=== PATIENT | female | born 1985 | race Caucasian/White ===

== ENCOUNTER → 2022-09-20 11:57 | Outpatient (CLI) | payer OTHER, SELFPAY ==
--- NOTE | ~2022-09-20 | US_ITS ---
EXAMINATION: US pelvic complete DATE: 09/20/2022 12:30 INDICATION: Uterine hypertrophy Comparison:12/13/2015 TECHNIQUE: Multiple transabdominal and endovaginal sonographic images of the pelvis performed. FINDINGS: The uterus measures 14.9 x 8.4 x 9.8 cm. There are multiple uterine fibroids, largest measu ring 6.7 x 5.5 x 4.8 cm. The endometrial complex measures 7 mm. The ovaries are not visualized. There is no free fluid in the pelvis. There are no abnormal masses seen on either side. IMPRESSION: 1. Enlarged uterus containing multiple fibroids, largest measuring up to 6.7 cm. Reviewed, dictated and finalized at location L. IMPRESSION: 1. Enlarged uterus containing multiple fibroids, largest measuring up to 6.7 cm .
== END ==
PROVIDERS: PCP Advanced Practice Midwife; Visit Provider Advanced Practice Midwife
DX: N85.2 Hypertrophy of uterus (principal); D25.9 Leiomyoma of uterus, unspecified
CPT/HCPCS: 76856

== ENCOUNTER 2023-05-30 09:52 | Outpatient (CLI) | payer OTHER, SELFPAY ==
[2023-05-30 10:22] LABS: Hemoglobin 13.2 g/dL (12.0-15.0)
== END 2023-05-30 09:53 | disposition home or self-care (01) ==
LOC: ANHSURGERY 09:57
PROVIDERS: Visit Provider Obstetrics & Gynecology Gynecology
DX: D25.9 Leiomyoma of uterus, unspecified (principal); Z01.818 Encounter for other preprocedural examination
CPT/HCPCS: 36415; 85014; 85018; 86850; 86900; 86901

== ENCOUNTER 2023-06-03 10:15 | Inpatient (IN) | payer OTHER, SELFPAY ==
[2023-05-23 10:43] VITALS: BMI 25.7
--- NOTE | 2023-05-23 10:49 | PC.NURSE ---
Report to the Outpatient Waiting Room, entrance under the green pavilion located off [facility], at time 6:00 on date 06/03/23. Planned Procedure Time: 7:30. Time changes happen often and if your time is changed the preop area will call you the afternoon before. - You and your visitor will be asked to self-screen and do not enter if you have any COVID symptoms. - A mask is optional within the hospital at this time. Patients may have clear liquids (water, carbonated beverages, clear teas, apple juice) until 3 hours prior to surgery (4:30) with a maximum of 20 ounces. - No food from midnight until time of surgery Take the following medications with a SIP of water the morning of surgery: NONE DO NOT STOP ANY OF YOUR OTHER PRESCRIPTION MEDICATIONS PRIOR TO SURGERY ?EXCEPT THE FOLLOWING Medications to discontinue per physician: VITAMINS/SUPPLEMENTS Date to take last dose: 05/30/23 Please no make-up, nail syriac, hairspray, perfume, deodorant, or body powder the day of surgery. No jewelry (including any body piercings) or valuables the day of surgery, leave them at home. Please take a shower or bath the night before, or the morning of, surgery with an antibacterial soap. Wear comfortable, loose fitting clothing. - Jewelry must be removed prior to entering the operating room. Rings and piercings that are not removed may be cut off. - The hospital will not accept responsibility for valuables. - Please leave all valuables, including medications, at home the day of surgery. If you are going home after surgery, a licensed otr driver must drive you home. - NO public transportation without another adult if you receive anesthesia. - We recommend that an adult stay with you for 24 hours following discharge. - We also recommend that you do not drive, make important decision, drink alcoholic beverages, or take any drugs that were not prescribed by your health care provider for at least 24 hours after your discharge time. Follow any additional instructions given to you from your surgeon. If you or anyone in your household have experienced Covid symptoms in the past week, please notify your surgeon or the nurse liaison at the phone number below for possible testing. Telephone instructions given to PT - MICHELLE JOHNSON and asked if any additional questions and then verbalized understanding. Patient advised to call surgeon office or pre surgery nurse liaison [phone] if any additional questions.
[2023-06-03] VITALS (12 sets, daily range): BP systolic 101–137; BP diastolic 56–113; PULSE 66–80; RESP 12–20; TEMP 36.6–37.2; O2SAT 93–100; BMI 24.5
[2023-06-03] MEDS: ACETAMINOPHEN 500 MG TABLET 1000 MG PO (06:45)
[2023-06-03] MEDS: KETOROLAC 15 MG/ML VIAL (*BKC) IV PUSH (06:45)
--- NOTE | 2023-06-03 07:15 | WPDHPUPDATE1 ---
History and Physical Update Update Date/Time: 06/03/23 07:15 History and Physical has been reviewed, including an updated exam of the patient. There are NO changes in the patient's condition. Risks, benefits, and alternatives have been discussed and questions answered. Patient agrees to proceed with procedure.
--- NOTE | 2023-06-03 07:15 | PM.IMHP ---
H&P: HPI History of Present Illness Date/Time: 06/03/23 07:15 Chief Complaint: Symptomatic fibroid uterus Narrative: 37-year-old 0 being admitted for total abdominal hysterectomy with bilateral salpingectomy. Patient with good cycle control with her oral contraceptives however she has complained of increasing constant lower abdominal pressure as well as bladder pressure. The patient has no plans for children and wishes to proceed with definitive therapy. She has had 2 prior myomectomies ( 2015, 2018). Risks of infection, bleeding, injury to internal organs ( bowel, bladder, ovaries, ureters), DVT, and general anesthesia are reviewed. Patient voices understanding and agrees to proceed. Decision for direction of incision will be made at the time of anesthesia due to the large size of her uterus. Review of Systems Review of Systems: not repeated day of surgery; patient states no changes in status PMFSH Surgical History Surgical History (Updated 06/03/23 @ 07:[address] Victor MD) H/O knee surgery Hx of myomectomy abdominal resulted in transfusion Status post hysteroscopic myomectomy 2015 Social History Social History Smoking status: Former smoker Tobacco type: cigarettes Additional smoking assessment comments: FORMER SOCIAL SMOKER Alcohol intake: current Drinks per week: 10 Substance use: current Substance use type: marijuana Living arrangements: alone Spiritual care concerns: No Meds Home Medications and Allergies Home Medications Medication Instructions Recorded Confirmed Type Saccharomyces boulardii 250 mg 250 mg PO DAILY 05/23/23 05/23/23 History capsule (Daily Probiotic (S. boulardii)) [id number] 18 mg-FA 400 1 tablet PO DAILY 05/23/23 05/23/23 History mcg-calcium 500 mg-vit K 50 mcg tablet (Women's Multivitamin) norethindrone 1 mg-e. estradiol 20 1 tablet PO HS 05/23/23 06/03/23 History mcg (24)-iron 75 mg (4) chew tablet (Mibelas 24 Fe) Allergies Allergy/AdvReac Type Severity Reaction Status Date / Time No Known Allergies Allergy Verified 06/03/23 06:28 Vital Signs Vital Signs - 24 hr 06/03/23 06:52 Temperature 98.2 F Pulse Rate 78 Respiratory Rate 16 Blood Pressure 134/64 Pulse Oximetry 100 Oxygen Delivery Room Air Exam Const: General: healthy appearing and alert Orientation/consciousness: patient oriented x3 Resp: Effort & Inspection: normal respiratory effort GI: GI Palp: Yes Soft to palpation, No Tenderness to palpation present (GI) and Yes Other GI palpation findings present ( uterus is approximately 18 week size) : External Female Exam: normal external appearance Speculum Exam - Vagina: normal appearance of the vagina and normal vaginal discharge Speculum Exam - Cervix: normal appearance of the cervix Bimanual exam- vagina & uterus: enlarged ( globular and approximately 18 week size) Bimanual Exam- Adnexa, other: normal adnexae and No adnexal tenderness Neuro: General: patient oriented x3 Assessment and Plan Assessment and plan (1) Fibroid uterus: Code(s): D25.9 - Leiomyoma of uterus, unspecified Status: Acute Assessment and Plan: The patient has failed conservative treatment and wishes to proceed with total abdominal hysterectomy. In addition the plan is for bilateral salpingectomy
--- NOTE | 2023-06-03 07:26 | P.PNAN_ITS ---
Anes - Initial Pre Proc Eval Procedure: Operation Date: 06/03/23 07:30 Proposed Procedures p Total Abdominal Hysterectomy with Bilateral Salpingectomy - Ct Victor MD Date/Time: 06/03/23 07:26 Surgeon: Ct Victor MD Pre Op Diagnosis: Fibroid Uterus Patient Data Age: 38 Gender: F Height: 1.63 m Weight: 64.85 kg Last Vital Signs Temp 36.8 C 06/03/23 06:52 Pulse 78 06/03/23 06:52 Resp 16 06/03/23 06:52 BP 134/64 06/03/23 06:52 Pulse Ox 100 06/03/23 06:52 O2 Del Method Room Air 06/03/23 06:52 Allergies Allergy/AdvReac Type Severity Reaction Status Date / Time No Known Allergies Allergy Verified 06/03/23 06:28 Home Medications Medication Instructions Recorded Confirmed Type Saccharomyces boulardii 250 mg 250 mg PO DAILY 05/23/23 05/23/23 History capsule (Daily Probiotic (S. boulardii)) [id number] 18 mg-FA 400 1 tablet PO DAILY 05/23/23 05/23/23 History mcg-calcium 500 mg-vit K 50 mcg tablet (Women's Multivitamin) norethindrone 1 mg-e. estradiol 20 1 tablet PO HS 05/23/23 06/03/23 History mcg (24)-iron 75 mg (4) chew tablet (Mibelas 24 Fe) Patient hx anesthesia problems: none Family hx anesthesia problems: none Results Review: All pre-operative results and documents have been reviewed as part of the pre- operative evaluation. [facility] Surgical History Surgical History H/O knee surgery Hx of myomectomy abdominal resulted in transfusion Status post hysteroscopic myomectomy 2015 Social History Social History Smoking status: Former smoker Tobacco type: cigarettes Additional smoking assessment comments: FORMER SOCIAL SMOKER Alcohol intake: current Drinks per week: 10 Substance use: current Substance use type: marijuana Living arrangements: alone Spiritual care concerns: No Anes - Eval Final PreProcedure Day of Procedure 06/03/23 07:26 Patient weight: normal Heart: regular rate and rhythm Lungs: clear to auscultation Airway: Mallampati scale class II Neurological: alert and oriented Last oral intake: >/= 8 hours ASA classification: I Emergent: no Anesthetic plan: proceed Anesthesia type and monitoring: general ETT and standard monitoring Results Review: All pre-operative results and documents have been reviewed as part of the pre- operative evaluation. Informed Consent: The patient's anesthetic plan and its attendant risks and benefits were discussed with the patient/family/POA. Questions were solicited and answers provided to the satisfaction of the patient/family/POA.
[2023-06-03] MEDS: LACTATED RINGERS 1,000 ML 30 ML IV CONT ×2 (07:30→08:50)
[2023-06-03] MEDS: ceFAZolin 2 GM/D5W 50 ML 2 GM/50 ML BAG IVPB (07:30)
--- NOTE | 2023-06-03 08:49 | W.PM.PROC2 ---
Procedure Note - Detailed Date of Procedure 06/03/23 Pre-op Diagnosis Fibroid Uterus Post-op Diagnosis Same Procedure Performed Total abdominal hysterectomy with bilateral salpingectomy Surgeon Ct Victor MD Anesthesia General Findings uterus is at umbilicus; multiple large fibroids; posterior adhesions to the small bowel and omentum Description of Procedure The patient is taken to the operating room and placed under anesthesia in the dorsal supine position. She was prepped and draped in the usual sterile fashion. Abdominal exam under anesthesia reveals the uterus to be taller than it is wide. It is at the umbilicus but does not fill the pelvis. Decision was made to proceed with a Pfannenstiel skin incision through her prior incision. This was carried down to the underlying layer of fascia which was then nicked in the midline and extended laterally using Marie scissors. [facility] was used to grasp the fascia which was then dissected off using sharp dissection. The rectus muscles were in the midline and the peritoneum tented and entered with Metzenbaum scissors. The incision was extended with blunt traction. The pelvis was then explored and adhesions are noted on the posterior surface the fundus and lower uterine segment. These are dissected off using sharp and blunt dissection. The uterus is grasped on the cornu with large peons. The medium Blaire was placed to retract anteriorly. The bowel was packed away using moist laparotomy sponges and the [place] retractor was placed. The round ligaments were doubly ligated with 0 Vicryl, transected, and the anterior leaf of the broad ligament incised meeting in the midline. The bladder was dissected off using sharp blunt dissection. The utero-ovarian ligaments are isolated and a window created in the posterior leaf of the broad ligament. The tubes were grasped with a Ranjeet and incorporated into the proximal side of the pedicle. The pedicle was then doubly clamped, transected, and suture ligated with 0 Vicryl. The uterine vessels are skeletonized, clamped, suture ligated with 0 Vicryl. The cardinal and uterosacral ligaments were serially clamped, transected, and suture ligated with 0 Vicryl. The uterosacral ligaments were tagged for future use. The vaginal cuff was entered when clamping the uterosacral ligaments. The vaginal cuff was grasped anteriorly and posteriorly with long Allis clamps. The specimen was amputated using Du since. The vaginal cuff was then closed using 0 Vicryl in a running locked fashion. Angles were tied to the ipsilateral uterosacral ligaments. The pelvis is irrigated and a small area of peritoneum on the right is using. This is grasped and cauterized. The pelvis was then irrigated noted to be hemostatic. Due to all the raw surfaces, powdered Surgicel was placed under the bladder flap and over the peritoneal surface. All sponges and instruments are removed. The fascia was closed using 0 Vicryl in a running fashion. Subcutaneous tissues were irrigated made hemostatic using Bovie cautery. Skin incision was closed using 4 0 Vicryl in a subcuticular fashion. Dermaflex was placed over the incision. Sponge, needle, and instrument counts are correct per the OR staff. Patient received Ancef prior to incision. The patient is then awakened from anesthesia and taken to recovery in stable condition. Estimated Blood Loss 300 Drains Yes ( Steele catheter) Packing No Pathology Yes ( uterus into) Complications No immediate complications Condition Stable Disposition PACU
--- NOTE | 2023-06-03 08:58 | PM.DS ---
DS: Admitting Diagnosis Discharge Date 06/05/23 Admitting Diagnosis fibroid uterus DS: Discharge Diagnosis Discharge Diagnosis (1) Status post total abdominal hysterectomy: Code(s): Z90.710 - Acquired absence of both cervix and uterus Status: Acute DS: Summary Hospital Course Hospital Course: At the time of discharge, patient is tolerating regular diet, ambulating, and voiding without difficulty. Pain is under good control. Status at Discharge Functional status at discharge: independent ambulation Overall status at discharge: patient is progressing back to baseline Time Spent with Patient Time attestation: Total time spent providing and/or coordinating discharge services: DS: Data Data Completed and Pending Pending studies at discharge: Pending at discharge 06/03/23 08:42 Surgical [PTH] Routine Discharge Plan Discharge Attending physician on discharge: Ct Victor Discharging Clinician: Yana Domingo Anticipated Discharge Date/Time: 06/05/23 09:58 Patient Disposition: Home, Self-Care Activity: may shower and pelvic rest Diet: as tolerated and regular Wound Care Instructions: follow printed instructions Discharge Instructions: You may take ibuprofen 600mg (3 over the counter tablets) every 6 hours as needed for pain. Patient Instructions: Hysterectomy (DC) Stand Alone Forms: General Discharge Instructions Follow-up/Referrals: Ct Victor MD [Physician] - (1 week post-op incision check) Discharge Medications: Continued Saccharomyces boulardii [Daily Probiotic (S. boulardii)] 250 mg Capsule 250 mg PO DAILY Women's Multivitamin 18 mg-400 mcg- 500 mg-50 mcg Tablet 1 tablet PO DAILY Discontinued norethindrone-e.estradiol-iron [Mibelas 24 Fe] 1 mg-20 mcg(24) /75 mg (4) tablet,chewable 1 tablet PO HS Date of admission: 06/03/23 10:15 Primary Care Provider: PHYSICIAN,EMPLOYER RELATIONS REPRESENTATIVE Admitting Provider: Ct Victor Attending physician on admission: Ct Victor Condition: Stable
--- NOTE | 2023-06-03 09:34 | SUR.PHASEI ---
0934 patient is hooked up to 3 lead EKG monitoring. It is noted that the T waves are tall. Raoul CHOI is aware and there is no concern at this time.
--- NOTE | 2023-06-03 10:21 | PC.NURSE ---
This patient, Cami Olivares, was received from PACU per bed to room 289. Patient/family oriented to unit policies and routines
[2023-06-03] MEDS: DEXTROSE 5%/LACTATED RINGERS 1,000 ML 125 ML IV CONT (10:35)
[2023-06-03] MEDS: KETOROLAC 30 MG/ML VIAL (*BKC) IV PUSH ×2 (10:47→20:19)
[2023-06-03] MEDS: ONDANSETRON INJ 4 MG/2 ML VIAL IV PUSH (11:33)
[2023-06-03] MEDS: HYDROcodone/acetaminophen (*CRX) 10-325 MG TABLET 1 TAB PO (11:33)
[2023-06-03] MEDS: SIMETHICONE 80 MG TAB.CHEW PO (20:18)
[2023-06-03] MEDS: HYDROcodone/acetaminophen (*CRX) 5-325 MG TABLET 1 TAB PO (21:32)
[2023-06-04 04:29] VITALS: BP 108/51; PULSE 69; RESP 18; TEMP 37.4; O2SAT 100
[2023-06-04 05:12] LABS: Basophils Percent Auto 0.4 % (0.2-1.2); Eosinophils Percent Auto 0.1 % (0-4.4); Hematocrit 34.9 % (37.0-47.0); Hemoglobin 11.3 g/dL (12.0-15.0); Immature Granulocyte Absolute 0.02 K/mm3 (0.00-0.031); Immature Granulocyte Percent A 0.2 % (0-0.5); Immature Platelet Fraction Pct 2.5 % (0.9-11.2); Lymphocytes Absolute Auto 1.84 K/mm3 (0.9-3.2); Mean Corpuscular HGB Conc 32.4 g/dl (32-36); Mean Corpuscular Hemoglobin 30.2 pg (26-34); Mean Corpuscular Volume 93.3 fl (80-100); Monocytes Absolute Auto 0.9 K/mm3 (0.1-0.6); Monocytes Percent Auto 10.2 % (2.6-8.5); Neutrophils Absolute Auto 5.6 K/mm3 (1.3-6.7); Neutrophils Percent Auto 67.1 % (45.5-73.1); Platelet Count Result 248 k/mm3 (150-375); Red Blood Count 3.74 M/mm3 (4.2-5.4); Red Cell Distribution Width 12.4 % (11.5-14.5); White Blood Count 8.4 K/mm3 (4.5-10.0)
--- NOTE | 2023-06-04 07:43 | PM.GYNPNOP ---
REAL ESTATE INSPECTOR - A/P Postoperative Procedures: Procedures Operation Date: 06/03/23 07:30 Actual Procedure Side Surgeon p Total Abdominal Hysterectomy with Bilateral Salpingectomy Bilateral Ct Victor MD Postoperative day: 1 Postoperative status: doing well Postoperative plan: routine post-op care Time Spent With Patient Time: Total time spent is greater than 50% in coordination of care (as documented) at patient's floor/unit and/or counseling patient: Time with patient: less than 15 minutes REAL ESTATE INSPECTOR- PN:Subj Post-Op Subjective Date/time seen: 06/04/23 07:43 Subjective: patient has no complaints and pain is well controlled Exam Narrative: abdomen soft, nt inc c/d/i REAL ESTATE INSPECTOR - PN: Obj Data Vital Signs Vital Signs: Vital Signs - 24 hr 06/03/23 08:50 06/03/23 09:00 06/03/23 09:15 Temperature 98.6 F Pulse Rate 80 75 68 Respiratory Rate 19 20 18 Blood Pressure 134/113 H 137/81 123/74 Pulse Oximetry 100 100 97 Oxygen Delivery Simple Face Mask Room Air Room Air Oxygen Flow Rate 10 06/03/23 09:45 06/03/23 09:30 06/03/23 10:00 Temperature Pulse Rate 73 73 73 Respiratory Rate 17 17 18 Blood Pressure 119/75 117/76 Pulse Oximetry 96 97 97 Oxygen Delivery Room Air Room Air Oxygen Flow Rate 06/03/23 10:09 06/03/23 10:25 06/03/23 15:50 Temperature 99 F 97.9 F Pulse Rate 66 68 70 Respiratory Rate 12 16 16 Blood Pressure 125/72 118/63 124/81 Pulse Oximetry 93 100 Oxygen Delivery Room Air Oxygen Flow Rate 06/03/23 20:05 06/03/23 20:05 06/03/23 23:15 Temperature 98.6 F 98.3 F Pulse Rate 72 72 73 Respiratory Rate 16 16 18 Blood Pressure 123/75 101/56 L Pulse Oximetry 100 100 100 Oxygen Delivery Room Air Oxygen Flow Rate 06/04/23 04:29 Temperature 99.4 F Pulse Rate 69 Respiratory Rate 18 Blood Pressure 108/51 L Pulse Oximetry 100 Oxygen Delivery Oxygen Flow Rate Intake/Output Intake/Output: Intake & Output 06/01/23 06/02/23 06/03/23 06/04/23 23:59 23:59 23:59 23:59 Intake Total 2700 Output Total 1900 1200 Balance 800 -1200 Meds/Results Medications: Active Medications Generic Name Dose Route Start Last Admin Trade Name Freq PRN Reason Stop Dose Admin Hydrocodone Bitart/Acetaminophen 1 tab 06/03/23 10:15 06/03/23 11:33 Hydrocodone/Acetaminophen (*Crx) 10-325 Mg Tablet PO 1 tab Q3H PRN Administration Pain Rated 6 or Greater Hydrocodone Bitart/Acetaminophen 1 tab 06/03/23 10:15 06/03/23 21:32 Hydrocodone/Acetaminophen (*Crx) 5-325 Mg Tablet PO 1 tab Q3H PRN Administration Pain Rated 5 or Less Dextrose/Lactated Ringer's 1,000 mls @ 125 mls/hr 06/03/23 10:15 06/04/23 04:31 Dextrose 5%/Lactated Ringers IV CONT Not Given .Q8H [facility] Ibuprofen 600 mg 06/03/23 10:15 Ibuprofen 600 Mg Tablet PO Q6H PRN Cramping Ketorolac Tromethamine 30 mg 06/03/23 10:15 06/03/23 20:19 Ketorolac 30 Mg/Ml Vial (*Bkc) IV PUSH 06/08/23 10:14 30 mg Q6H PRN Administration Pain Rated 4-6 Ondansetron HCl 4 mg 06/03/23 10:15 06/03/23 11:33 Ondansetron Inj 4 Mg/2 Ml Vial IV PUSH 4 mg Q6H PRN Administration Nausea Simethicone 80 mg 06/03/23 12:00 06/03/23 20:18 Simethicone 80 Mg Tab.Chew PO 80 mg TIDWM JOSE Administration Labs 06/04/23 04:01 Labs: Laboratory Results - last 24 hr 06/04/23 04:01 WBC 8.4 RBC 3.74 L Hgb 11.3 L Hct 34.9 L MCV 93.3 MCH 30.2 MCHC 32.4 RDW 12.4 Plt Count 248 MPV 10.0 Immature Gran % (Auto) 0.2 Neut % (Auto) 67.1 Lymph % (Auto) 22.0 [place] % (Auto) 10.2 H Eos % (Auto) 0.1 Baso % (Auto) 0.4 Lymph # (Auto) 1.84 [place] # (Auto) 0.9 H Eos # (Auto) 0.0 Baso # (Auto) 0.0 Abs Immat Gran (auto) 0.02 Absolute Neuts (auto) 5.6 Absolute Nucleated RBC 0.0 Nucleated RBC % 0.0 % Immature Plt Fraction 2.5
--- NOTE | 2023-06-04 07:51 | WPDANESPN ---
Anes - Prog Note Post-Op Date/Time: 06/04/23 07:51 Cardiovascular status: normal Respiratory status: normal Airway patency: baseline Mental status: baseline Post-Op hydration status: normal Vital Signs: Last Vital Signs Temp 99.4 F 06/04/23 04:29 Pulse 69 06/04/23 04:29 Resp 18 06/04/23 04:29 BP 108/51 L 06/04/23 04:29 Pulse Ox 100 06/04/23 04:29 O2 Del Method Room Air 06/03/23 20:05 O2 Flow Rate 10 06/03/23 08:50 Pain Score (VAS): 4 I/O: Intake & Output 06/03/23 06/03/23 06/04/23 15:59 23:59 07:59 Intake Total 1150 1500 Output Total 900 1000 1200 Balance 250 500 -1200 Laboratory Tests 06/04/23 04:01 06/04/23 04:01 WBC 8.4 RBC 3.74 L Hgb 11.3 L Hct 34.9 L MCV 93.3 MCH 30.2 MCHC 32.4 RDW 12.4 Plt Count 248 MPV 10.0 Immature Gran % (Auto) 0.2 Neut % (Auto) 67.1 Lymph % (Auto) 22.0 [place] % (Auto) 10.2 H Eos % (Auto) 0.1 Baso % (Auto) 0.4 Lymph # (Auto) 1.84 [place] # (Auto) 0.9 H Eos # (Auto) 0.0 Baso # (Auto) 0.0 Abs Immat Gran (auto) 0.02 Absolute Neuts (auto) 5.6 Absolute Nucleated RBC 0.0 Nucleated RBC % 0.0 % Immature Plt Fraction 2.5 Post-procedural complaints: none Patient Feedback: Patient satisfied with anesthetic care.
[2023-06-04] MEDS: IBUPROFEN 600 MG TABLET PO ×3 (07:53→19:55)
[2023-06-04] MEDS: SIMETHICONE 80 MG TAB.CHEW PO ×3 (07:53→17:49)
[2023-06-04 08:25] VITALS: BP 123/69; PULSE 76; RESP 16; TEMP 37.3; O2SAT 100
[2023-06-04 19:30] VITALS: BP 132/82; PULSE 81; RESP 18; TEMP 37; O2SAT 99
[2023-06-05 08:15] VITALS: BP 131/60; PULSE 78; RESP 16; TEMP 36.3; O2SAT 100
[2023-06-05] MEDS: SIMETHICONE 80 MG TAB.CHEW PO (08:48)
[2023-06-05] MEDS: IBUPROFEN 600 MG TABLET PO (08:48)
--- NOTE | 2023-06-05 09:53 | PM.GYNPNOP ---
FINE UNHAIRER - A/P Postoperative Procedures: Procedures Operation Date: 06/03/23 07:30 Actual Procedure Side Surgeon p Total Abdominal Hysterectomy with Bilateral Salpingectomy Bilateral Ct Victor MD Postoperative day: 2 Postoperative status: doing well Postoperative plan: routine post-op care and discharge Time Spent With Patient Time: Total time spent is greater than 50% in coordination of care (as documented) at patient's floor/unit and/or counseling patient: Time with patient: 15 - 25 minutes FINE UNHAIRER- PN:Subj Post-Op Subjective Date/time seen: 06/05/23 0735 Interval history: POD 2 from [facility] with bilateral salpingectomy. Doing very well. Tolerating PO fluids and food. Passing flatus. Pain well controlled with Motrin. Minimal vaginal spotting yesterday. Urinating without difficulty. Subjective: patient has no complaints, pain is well controlled and patient is tolerating oral intake Review of Systems Review of Systems: All systems reviewed & are unremarkable except as noted in HPI and below Exam Const: General: cooperative, no acute distress and awake Orientation/consciousness: patient oriented x3 Limitations: no limitations Resp: Effort & Inspection: normal respiratory effort and able to speak in complete sentences Auscultation: clear to auscultation bilaterally Cardio: Rate: regular rate Peripheral pulses: Peripheral pulses 2+ throughout GI: Inspection: normal to inspection Auscultation: normal bowel sounds : General: Yes bladder normal to palpation Skin: General skin exam: normal color Other: Incision C/D/I. Skin glue present. Neuro: General: patient oriented x3 Cognition (Neuro): normal cognition Speech: normal speech Extrem: General: normal to inspection Psych: Appearance: grossly normal Mental Status: mental status grossly normal Speech and movement: Normal speech and movement present Affect: normal affect Attitude: cooperative Thought process: Normal thought process present FINE UNHAIRER - PN: Obj Data Vital Signs Vital Signs: Vital Signs - 24 hr 06/04/23 19:30 Temperature 98.6 F Pulse Rate 81 Respiratory Rate 18 Blood Pressure 132/82 Pulse Oximetry 99 Intake/Output Intake/Output: Intake & Output 06/02/23 06/03/23 06/04/23 06/05/23 23:59 23:59 23:59 23:59 Intake Total 2700 Output Total 1900 1475 Balance 800 -1475 Meds/Results Medications: Active Medications Generic Name Dose Route Start Last Admin Trade Name Freq PRN Reason Stop Dose Admin Hydrocodone Bitart/Acetaminophen 1 tab 06/03/23 10:15 06/03/23 11:33 Hydrocodone/Acetaminophen (*Crx) 10-325 Mg Tablet PO 1 tab Q3H PRN Administration Pain Rated 6 or Greater Hydrocodone Bitart/Acetaminophen 1 tab 06/03/23 10:15 06/03/23 21:32 Hydrocodone/Acetaminophen (*Crx) 5-325 Mg Tablet PO 1 tab Q3H PRN Administration Pain Rated 5 or Less Ibuprofen 600 mg 06/03/23 10:15 06/05/23 08:48 Ibuprofen 600 Mg Tablet PO 600 mg Q6H PRN Administration Cramping Ketorolac Tromethamine 30 mg 06/03/23 10:15 06/03/23 20:19 Ketorolac 30 Mg/Ml Vial (*Bkc) IV PUSH 06/08/23 10:14 30 mg Q6H PRN Administration Pain Rated 4-6 Ondansetron HCl 4 mg 06/03/23 10:15 06/03/23 11:33 Ondansetron Inj 4 Mg/2 Ml Vial IV PUSH 4 mg Q6H PRN Administration Nausea Simethicone 80 mg 06/03/23 12:00 06/05/23 08:48 Simethicone 80 Mg Tab.Chew PO 80 mg TIDWM JOSE Administration Labs 06/04/23 04:01
== END 2023-06-05 10:21 | disposition home or self-care (01) | DRG 743 ==
LOC: ANHOB2 10:26
PROVIDERS: Admitting Provider Obstetrics & Gynecology Gynecology; Visit Provider Obstetrics & Gynecology Gynecology
PROC: 0UT94ZZ Resection of Uterus, Percutaneous Endoscopic Approach (ICD-10-PCS; principal; 2023-06-03 07:30)
DX: D25.9 Leiomyoma of uterus, unspecified (principal); Z87.891 Personal history of nicotine dependence
CPT/HCPCS: 36415; 85025; 85055; 88307; A9270; J0690; J1100; J1170; J1885; J2250; J2405; J2704; J7120; J7121